=== PATIENT | male | born 1955 | race Caucasian/White ===

== ENCOUNTER 2017-11-27 10:00 | Outpatient (RCR) | payer OTHER ==
--- NOTE | 2017-10-10 18:22 | PT INITIAL EVALUATION ---
Physician: Dr. Keyes Patient is being seen: Hieu De Leon (Tom) Therapist: Caren Garcia, PT, MPT Medical Diagnosis: L) great toe plantar surface, neuropathic ulcer Treatment Diagnosis: L) great toe plantar surface, neuropathic ulcer Date of Onset: March 2016 Date of Initial Evaluation: 05/16/16 Date of Re-evaluations: 08/22/16, 11/28/16, 03/13/17, 06/12/17, 10/08/17 Date patient was last seen: 10/08/17 Number of treatments: 66 Number of cancellations/No shows: 0 SUBJECTIVE: Pt attempted to manage care of healing wound indep and requested discharge from wound care on 09/09/17. Pt now returns noting that callous formed over the wound and following soaking his foot in epsom salt, it began to slough. Pt is concerned regarding the possibility of a more significant wound beneath. OBJECTIVE: Currently wound measures 0.2cm L x 0.8cm W x 0.2cm D following debridement of periwound callous with beveling down to healthy wound base. INTERVENTIONS: The patient has been seen for PT wound care since 05/16/16, this has included advanced wound care product selection and application as well as conservative sharps debridement. The patient was fit by Dr. Carranza for custom orthotic with off loading of the L) great toe in May 2016. Mando has been compliant with attending wound care appointments and completing home dressing changes. Pt has undergone antibiotic treatment for wound infection three separate times since start of care; 07/04/2016 (oral abx), 10/26/2015 (oral Keflex and Bactrim), and most recently on 02/19/2017 (IV followed by oral clindamycin). X-rays were taken on 10/26/16 and 02/19/17 and per reports there was no evidence of osteomyelitis at that time. Due to delayed healing with current orthotic and pt's high activity level, the patient began wearing offloading shoe with "peg-assist" offloading insert in October 2016 to minimize pressure during toe off. The patient has been moderately compliant with decreasing activity and use of offloading device since that time. PT recommended that patient use crutches with NWB status of L) LE in order to fully offload wound, however the patient indicates that he cannot be compliant with this due to lifestyle constraints. Negative Pressure Wound Therapy was also applied for a 3 week trial using SNAP disposable NPWT, no improvement was noted during this trial (01/25/17-02/15/17). The patient was referred to Dr. Dillon DPM for further recommendations for effective offloading as well as alternative interventions so as to facilitate wound healing and prevent further infection. Per pt report, Dr. Carranza recommended continued daily dressing changes with collagen application and use of orthotic for offloading. Dr. Carranza is available for consult as needed. Pt also indicated that Dr. Carranza's next suggestion was total contact casting if wound still does not improve. Wound was gradually improving in dimensions until 05/09, when the medial aspect eroded, creating a larger wound width again. Length of wound, however, continues to improve. Pt then continued with wound care clinic for weekly care until 09/09/17, at which time he requested to be discharged, noting that he felt he and his could manage the dressing changes in the home environment, as the wound was so nearly healed. At time of discharge, wound measured 0.1cm L x 0.5cm W x 0.2cm D. Short Term Goals 1. Pt to maintain a clean, dry and intact dressing with dressing changes as instructed at home between therapy visits 2. Wound bed to demo 100% granulation base with wound borders gradually migrating inward. 3. No signs or symptoms of infection to be noted, using clean technique for all dressing changes and debridement. 4. Pt to f/u with specialists as needed to prevent further injury related to neuropathy 5. Pt to demo understanding of preventative foot care and proper shoe selection. Patient Compliance: Pt compliant with daily wound dressing changes and maintains clean and dry dressings between visits. The patient has been moderately compliant with decreasing activity and use of offloading device. Wound Measurements: 05/16/16: 1.5cm L x 1.5cm W x 0.3cm D 08/12/16: 1.4 cm L x 1.1 cm W x0.2 cm D 11/28/16: 1.1 cm L x 0.9 cm W x0.2 cm D 03/13/17: 1 cm L x 0.9 cm W x 0.2 cm D Undermining of 0.2 cm from 11-2, increased depth of 0.3 at 11 o clock. 06/12/17: 0.7cm L x 1.7cm W x 0.2cm D 10/08/17: 0.2cm l x 0.8cm W x 0.2cm D MIGUEL ÁNGEL's: R) 1.03, L) 1.1 (measured 10/31/16) Reasons for continuing therapy: Pt will benefit from further skilled PT for conservative sharp debridement as well as advanced PT wound care product selection and application in order to facilitate wound healing without further complications and infection. Further ongoing instruction provided regarding more effective off-loading and pt is aware that Dr. Carranza recommends total contact casting if wound healing stalls again. Pt is declining this option currently. Pt will now be scheduled as a co-treat visit with [facility] for a consult regarding more appropriate shoes and insoles, or true off inlayer, such as a [place] or owl boot. Thank you for consult on this patient. If you have any questions, comments, or concerns about this report or plan, please contact me at . H. Nelly Garcia, PT, MPT MTDD
[~2017-11-27 10:00] MED LIST: AMI10 PO; CEPH500C24 PO; CLIN300C99 PO; HYDR-385 PO; HYDR2TAB74 PO; KET10 PO; LOR5 PO; LOR5/325 PO; OMEP-218 PO; ONDA4TAB PO; OXYC-865 PO; SULF-198 PO; TRAM100T8 PO; VITA400T7 PO; [UNRECOGNIZED DRUG - REMARK]
== END 2017-11-27 18:00 | disposition home or self-care (01) ==
LOC: PT 10:00
PROVIDERS: ATTEND Family Medicine
DX: L97.521 Non-pressure chronic ulcer of other part of left foot limited to breakdown of skin (principal)
CPT/HCPCS: 97161

== ENCOUNTER 2018-02-07 16:49 | Emergency (ER) | payer OTHER ==
[2018-02-07] MEDS ORDERED: GABA-506 PO (16:57)
--- NOTE | 2018-02-07 16:59 | ER Report ---
History and Physical Time Seen By MD: 16:59 HPI/ROS CHIEF COMPLAINT: Wound to left great toe HISTORY OF PRESENT ILLNESS: 62-year-old male patient presents to the emergency room with complaint of a wound to the left great toe. Patient states that he has had this wound for the past 3 years. States that he's noticed some redness over the last couple of days. States that he has had a fever. He was concerned about possible infection into the bone of that toe. He did come in for further evaluation. He does see Diana for wound care. He saw her earlier this week. He did discuss the redness and swelling with her and she encouraged him to come in for further evaluation. Patient has had a fever today, he has taken Tylenol at 7 :00 this morning, he is not taking anything this evening. He denies any nausea, vomiting or diarrhea. REVIEW OF SYSTEMS: Respiratory: No cough, no dyspnea. Cardiovascular: No chest pain, no palpitations. Gastrointestinal: No vomiting, no abdominal pain. Musculoskeletal: No back pain. Allergies: Coded Allergies: duloxetine HCl (Verified Allergy, Severe, SORES UNDER ARMS, 02/07/18) pregabalin (Verified Allergy, Severe, SORES UNDER ARMS, 02/07/18) gemfibrozil (Verified Allergy, Unknown, 02/07/18) EHR CONVERSION Home Meds Active Scripts Cephalexin 500 Mg Tab (KEFLEX 500 MG TAB) 500 Mg Tablet, 500 MG PO Q6H, #28 TAB Prov:CARLOS ABDUL 02/07/18 Reported Medications Gabapentin (GABAPENTIN) 800 Mg Tablet, 800 MG PO BID 02/07/18 Tramadol Hcl (TRAMADOL HCL) 100 Mg Tab.er.24h, 100 MG PO BID, #2 TAB 10/26/16 Omeprazole Magnesium (PRILOSEC OTC) 20 Mg Tablet.dr, 2 TAB PO QDAY, TAB 10/26/16 Discontinued Reported Medications Vitamin E Mixed (VITAMIN E) 400 Unit Tablet, 400 UNIT PO QDAY 10/26/16 Discontinued Scripts Hydrocodone Bit/Acetaminophen (HYDROCODON-ACETAMINOPHEN 5-325) 1 Each Tablet, 1- 2 EACH PO Q6H for PAIN, #30 TAB Prov:VIANNEY COLLINS PA-C 05/06/17 Oxycodone Hcl/Acetaminophen (PERCOCET 5-325 MG TABLET) 1 Each Tablet, 1-2 EACH PO Q4H Y for PAIN, #15 TAB 0 Refills Prov:JOHNATHON ERVIN MD 05/02/17 Clindamycin Hcl (CLINDAMYCIN HCL) 300 Mg Capsule, 300 MG PO Q6H, #40 CAPSULE 0 Refills Prov:GUCCI QUINTERO MD 02/19/17 Sulfamethoxazole/Trimet 800-160 Mg Tab (BACTRIM DS TABLET) 1 Each Tablet, 1 TAB PO BID for infection, #20 Prov:VANESSA RIOS Jerry DO 10/26/16 Cephalexin Monohydrate (CEPHALEXIN) 500 Mg Cap, 500 MG PO TID for infection, # 30 CAP TAKE 1 CAPSULE BY MOUTH EVERY SIX HOURS Prov:VANESSA RIOS 10/26/16 Past Medical/Surgical History Patient has a past medical history of neuropathy to bilateral feet, sleep apnea , hepatitis, cholecystitis, hiatal hernia, arthritis, left hand fracture. Patient has a surgical history of tonsillectomy, back surgery, cholecystectomy. Patient has a family medical history of [place], diabetes. Reviewed Nurses Notes: Yes Hx Smoking: Yes Hx Substance Use Disorder: No Hx Alcohol Use: No Constitutional Vital Sign - Last 24 Hours 02/07/18 02/07/18 02/07/18 02/07/18 16:50 16:56 16:59 18:31 Temp 100.3 Pulse 67 Resp 16 B/P (MAP) 165/85 165/85 (111) 157/91 (113) 141/74 (96) Pulse Ox 92 O2 Delivery Room Air 02/07/18 18:34 Temp 99.9 Intake and Output 02/07/18 02/07/18 02/08/18 15:00 23:00 07:00 Intake Total 100 ml Balance 100 ml Physical Exam General Appearance: The patient is alert, has no immediate need for airway protection and no current signs of toxicity. Respiratory: Chest is non tender, lungs are clear to auscultation. Cardiac: regular rate and rhythm Gastrointestinal: Abdomen is soft and non tender, no masses, bowel sounds normal. Musculoskeletal: Neck: Neck is supple and non tender. Extremities have full range of motion and are non tender. Skin: No rashes or lesions. Patient has wound to the plantar aspect of the left great toe, the foot itself is erythematous, warm. There is no swelling. DIFFERENTIAL DIAGNOSIS: After history and physical exam differential diagnosis was considered for cellulitis, osteomyelitis Medical Decision Making Data Points Result Diagram: 02/07/18 1707 02/07/18 1707 Laboratory Hematology Test 02/07/18 17:07 Red Blood Count 5.61 M/uL (4.00-5.60) Mean Corpuscular Volume 87.0 fL (80.0-96.0) Mean Corpuscular Hemoglobin 30.5 pg (26.0-33.0) Mean Corpuscular Hemoglobin Concent 35.0 g/dL (32.0-36.0) Red Cell Distribution Width 14.2 % (11.5-14.5) Mean Platelet Volume 8.2 fL (7.2-11.1) Neutrophils (%) (Auto) 77.8 % (39.4-72.5) Lymphocytes (%) (Auto) 11.7 % (17.6-49.6) Monocytes (%) (Auto) 8.4 % (4.1-12.4) Eosinophils (%) (Auto) 1.5 % (0.4-6.7) Basophils (%) (Auto) 0.6 % (0.3-1.4) Nucleated RBC Relative Count (auto) 0.1 /100WBC Neutrophils # (Auto) 7.8 K/uL (2.0-7.4) Lymphocytes # (Auto) 1.2 K/uL (1.3-3.6) Monocytes # (Auto) 0.8 K/uL (0.3-1.0) Eosinophils # (Auto) 0.1 K/uL (0.0-0.5) Basophils # (Auto) 0.1 K/uL (0.0-0.1) Nucleated RBC Absolute Count (auto) 0.01 K/uL Sodium Level 137 mmol/L (137-145) Potassium Level 3.7 mmol/L (3.5-5.0) Chloride Level 103 mmol/L (98-107) Carbon Dioxide Level 23 mmol/L (22-30) Blood Urea Nitrogen 13 mg/dl (9-21) Creatinine 0.80 mg/dl (0.66-1.25) Glomerular Filtration Rate Calc > 60.0 Random Glucose 119 mg/dl (75-110) Calcium Level 9.4 mg/dl (8.4-10.2) Total Bilirubin 1.0 mg/dl (0.2-1.3) Aspartate Amino Transf (AST/SGOT) 26 U/L (0-35) Alanine Aminotransferase (ALT/SGPT) 26 U/L (0-56) Alkaline Phosphatase 95 U/L (0-126) C-Reactive Protein 7.6 mg/dl (<1.0) Total Protein 7.7 gm/dl (6.3-8.2) Albumin 4.2 g/dl (3.5-5.0) Chemistry Test 02/07/18 17:07 White Blood Count 10.0 k/uL (4.5-11.0) Red Blood Count 5.61 M/uL (4.00-5.60) Hemoglobin 17.1 g/dL (14.0-18.0) Hematocrit 48.8 % (42.0-52.0) Mean Corpuscular Volume 87.0 fL (80.0-96.0) Mean Corpuscular Hemoglobin 30.5 pg (26.0-33.0) Mean Corpuscular Hemoglobin Concent 35.0 g/dL (32.0-36.0) Red Cell Distribution Width 14.2 % (11.5-14.5) Platelet Count 126 K/uL (150-450) Mean Platelet Volume 8.2 fL (7.2-11.1) Neutrophils (%) (Auto) 77.8 % (39.4-72.5) Lymphocytes (%) (Auto) 11.7 % (17.6-49.6) Monocytes (%) (Auto) 8.4 % (4.1-12.4) Eosinophils (%) (Auto) 1.5 % (0.4-6.7) Basophils (%) (Auto) 0.6 % (0.3-1.4) Nucleated RBC Relative Count (auto) 0.1 /100WBC Neutrophils # (Auto) 7.8 K/uL (2.0-7.4) Lymphocytes # (Auto) 1.2 K/uL (1.3-3.6) Monocytes # (Auto) 0.8 K/uL (0.3-1.0) Eosinophils # (Auto) 0.1 K/uL (0.0-0.5) Basophils # (Auto) 0.1 K/uL (0.0-0.1) Nucleated RBC Absolute Count (auto) 0.01 K/uL Glomerular Filtration Rate Calc > 60.0 Calcium Level 9.4 mg/dl (8.4-10.2) Total Bilirubin 1.0 mg/dl (0.2-1.3) Aspartate Amino Transf (AST/SGOT) 26 U/L (0-35) Alanine Aminotransferase (ALT/SGPT) 26 U/L (0-56) Alkaline Phosphatase 95 U/L (0-126) C-Reactive Protein 7.6 mg/dl (<1.0) Total Protein 7.7 gm/dl (6.3-8.2) Albumin 4.2 g/dl (3.5-5.0) EKG/Imaging Imaging FOOT 3 VIEW LEFT Provided history: wound to left great toe Additional pertinent history: none Three views obtained COMPARISON STUDIES: 02/19/17 FINDINGS: Acute osseous and soft tissue findings: There is moderate soft tissue swelling on the plantar surface of the great toe with a shallow surface ulceration at the level of the IP joint. No soft tissue gas. No underlying lytic lesion or gas in the joint space. There is mild dorsal swelling over the MTP joints seen only on the lateral view without obvious ulceration without bony normality underlying. Chronic osseous and soft tissue findings: Moderate pes planus deformity, almost converting to a rocker-bottom foot. Moderate-sized well-defined Achilles spur. Mild degenerative change of the first MTP joint and moderate degenerative change first IP joint. Lesions: None significant IMPRESSION: 1. Soft tissue changes per above without radiographic evidence of osteomyelitis. 2. Progressive pes planus deformity. Achilles spur. Other degenerative changes as noted. Report Dictated By: Ralph Santoro MD at 02/07/2018 5:53 PM Report E-Signed By: Ralph Santoro MD at 02/07/2018 5:58 PM ED Course/Re-evaluation ED Course Patient was admitted to an exam room, history and physical were obtained. Differential diagnoses were considered. A CBC, CMP, CRP, x-ray of the left foot was done. CBC had a white count of 10,000 with a slight left shift, 77% neutrophils. CMP was unremarkable. CRP was elevated at 7.6. X-ray showed no acute osteomyelitis. I discussed the case with Dr. Guerrier. Patient did receive a gram of Rocephin and my plan was to discharge him with oral Keflex [address] mg [address] Alberto did verbalize agreement with plan, his office will call and make appointment for follow-up with the patient on Saturday. I also called and discussed the results with Diana Garcia, physical therapist, who verbalized understanding and agreement with plan as well. I discussed this with the patient and we'll go ahead and discharge patient home at this time. Patient is return if condition worsens. Decision to Disposition Date: February 07, 2018 Decision to Disposition Time: 18:44 Depart Departure Latest Vital Signs Vital Signs Date Time Temp Pulse Resp B/P (MAP) Pulse Ox O2 Delivery O2 Flow Rate FiO2 02/07/18 18:34 99.9 02/07/18 18:31 141/74 (96) 02/07/18 16:50 67 16 92 Room Air Impression: Primary Impression: Cellulitis of left foot Additional Impression: Foot ulcer, left Condition: Condition Unchanged Disposition: HOME OR SELF-CARE Referrals: JOSE GUERRIER MD New Scripts Cephalexin 500 Mg Tab (KEFLEX 500 MG TAB) 500 Mg Tablet 500 MG PO Q6H, #28 TAB Prov: CARLOS ABDUL 02/07/18 Patient Instructions: Cellulitis (ED) Additional Instructions: Monitor the foot for worsening redness, heat or pain. The redness may worsens for the next couple of days and then will improve. Limit activity by pain. Follow up with Dr. Guerrier next week, his office will call on Saturday. Take Tylenol or Ibuprofen as needed for fevers. Follow up with Diana after you have seen Dr. Guerrier. Return to the ER if condition worsens. 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
[2018-02-07] MEDS ORDERED: ACETAMINOPHEN 500 MG TAB PO ONE (17:25)
[2018-02-07] MEDS ORDERED: cefTRIAXone(*) 1 GM VIAL 1 GM in NS(*) 0.9% 100 ML ADDVANT BAG 100 ML IVPB ONE (17:25)
[2018-02-07 17:40] LABS: PLATELET COUNT, AUTOMATED 126 K/uL (150-450)
--- NOTE | 2018-02-07 18:02 | RADIOLOGY IMAGING REPORT ---
[place] [facility] [place] Hieu De Leon : 1955 MR: [id number] V: [id number] EXAM DATE: ORDERING PHYSICIAN: CARLOS ABDUL TECHNOLOGIST: Location: [facility] Patient: Hieu De Leon : 1955 Visit/Account:[id number] Date of Sevice: 02/07/2018 FOOT 3 VIEW LEFT Provided history: wound to left great toe Additional pertinent history: none Three views obtained COMPARISON STUDIES: 02/19/17 FINDINGS: Acute osseous and soft tissue findings: There is moderate soft tissue swelling on the plantar surfa ce of the great toe with a shallow surface ulceration at the level of the IP joint. No soft tissue ga s. No underlying lytic lesion or gas in the joint space. There is mild dorsal swelling over the MTP joints seen only on the lateral view without obvious ulcer ation without bony normality underlying. Chronic osseous and soft tissue findings: Moderate pes planus deformity, almost converting to a rock er-bottom foot. Moderate-sized well-defined Achilles spur. Mild degenerative change of the first MTP joint and moderate degenerative change first IP joint. Lesions: None significant IMPRESSION: 1. Soft tissue changes per above without radiographic evidence of osteomyelitis. 2. Progressive pes planus deformity. Achilles spur. Other degenerative changes as noted. Report Dictated By: Ralph Santoro MD at 02/07/2018 5:53 PM Report E-Signed By: Ralph Santoro MD at 02/07/2018 5:58 PM WSN:[id number]
[2018-02-07] MEDS ORDERED: CEPH500T7 PO (18:20)
[2018-02-07 18:44] VITALS: BP 122/68
[2018-02-10] MEDS ORDERED: NAPR220C12 PO (16:37)
[2018-02-10] MEDS ORDERED: CEPH500T7 PO (17:29)
== END 2018-02-07 18:50 | disposition home or self-care (01) ==
LOC: ER 17:03
DX: L03.116 Cellulitis of left lower limb (principal); L97.522 Non-pressure chronic ulcer of other part of left foot with fat layer exposed
CPT/HCPCS: 36415; 73630; 85025; 86140; 87040; 87070; 87073; 87077; 87186; 96365; 99284; J0696; J7050; 82040; 82247; 82310; 82374; 82435; 82565; 82947; 84075; 84132; 84155; 84295; 84450; 84460; 84520

== ENCOUNTER → 2018-02-19 | Outpatient (CLI) | payer OTHER ==
[~2018-02-19] MED LIST changes: +CEPH500T7 PO; +GABA-506 PO; +GADOBENATE 529MG/1ML 15ML VIAL IVP ONE; +NAPR220C12 PO
--- NOTE | 2018-02-19 09:49 | RADIOLOGY IMAGING REPORT ---
FACILITY: [facility] PATIENT NAME: Hieu De Leon : 1955 MR: [id number] V: [id number] EXAM DATE: ORDERING PHYSICIAN: JOSE GUERRIER TECHNOLOGIST: [place] [facility] [place] Patient: Hieu De Leon : 1955 Visit/Account:[id number] Date of Sevice: 02/19/2018 MRI left foot with and without contrast Indication: Great toe ulcer. Evaluate for osteomyelitis. Comparison: Plain film examination 02/07/2018 is reviewed. Technique: Sagittal and coronal STIR and T1-weighted fat saturated postcontrast, axial T1 weighted fa t saturated pre-and postcontrast, T1-weighted, and T2-weighted fat saturated images were obtained thr ough the left foot. A total of 15 mL IV MultiHance contrast was administered. Findings: There is a soft tissue ulceration identified along the plantar margin of the great toe immediately be low the interphalangeal joint. There is skin thickening surrounding the ulcer involving the entire pl iva surface of the great toe centered around the interphalangeal joint space. There is no underlyin g marrow edema. There is no MR evidence to suggest osteomyelitis. No fluid collection. There is edema within the subcutaneous tissues. There is enhancement of the skin following contrast administration consistent with cellulitis. There are changes of osteoarthritis at the interphalangeal joint. Along the plantar surface of the sandip int space, there is a well-corticated ossification representing either a sesamoid, a joint body or an old fracture fragment in this location. No marrow edema or enhancement is present within the small f ragment. There is no evidence for septic arthropathy. The underlying flexor hallucis longus tendon is intact. There is no evidence of tendon thickening or intrasubstance tendon signal or enhancement. There is mild peritendinitis involving the tendon sheath . This may be related to the adjacent edema and cellulitic changes related to the ulcer. No fluid is seen within the tendon sheath. There are mild changes of osteoarthritis present at the first metatarsophalangeal joint and there are degenerative changes between the first metatarsal head and the sesamoids. The remaining metatarsophalangeal joints and the remaining interphalangeal joints of the forefoot jian ear normal. There is underlying atrophy of the intrinsic musculature of the foot likely due to chronic denervatio n changes. IMPRESSION: 1. Soft tissue ulcer with associated skin thickening/cellulitis and soft tissue edema along the plant ar surface of the left great toe. No evidence of abscess, osteomyelitis or septic arthropathy. 2. Mild, nonspecific peritendinitis about the flexor hallucis longus tendon sheath as it courses beyo nd the ulcer and soft tissue edema. No evidence of tendon thickening or tendon tear. 3. 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 Report Dictated By: Julius Chapa at 02/19/2018 9:32 AM Report E-Signed By: Julius Chapa at 02/19/2018 9:45 AM WSN:[id number]
== END ==
LOC: MRI 00:55
PROVIDERS: ATTEND Surgery
DX: L97.529 Non-pressure chronic ulcer of other part of left foot with unspecified severity (principal); M77.8 Other enthesopathies, not elsewhere classified; M19.072 Primary osteoarthritis, left ankle and foot
CPT/HCPCS: 73720; A9577

== ENCOUNTER 2018-04-28 10:00 | Outpatient (RCR) | payer OTHER ==
--- NOTE | 2018-02-18 14:39 | PT INITIAL EVALUATION ---
MEDICAL DIAGNOSIS: neuropathic ulcer at L) great toe; plantar surface of distal phalanx near IP joint. TREATMENT DIAGNOSIS: same DATE OF ONSET: chronic (>1 year) SUBJECTIVE: Pt arrives with wound covered in large bandaid at L) great toe; plantar surface of distal phalanx near IP joint. Odor noted upon removal of dressing. Tiny opening but with larger cavity beneath demonstrated by undermining. REHAB PROBLEM LIST: Non-healing wound at L) great toe with various modalities used for off loading and treatment. 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 Following debridement wound reveals itself to be 0.7cm l x 1cm W x 0.4cm D. ASSESSMENT: This wound is ongoing from previous out pt wound care management. Pt has been attempting to care for this in the home environment, however, due to increased odor and still non-healing wound, pt requested another wound eval prescription from his PCP, Dr. Keyes. Upon removal of dressing, there is a distinct odor. Wound opening is in fact initially very small, however, probing reveals an extensive area of undermining laterally and a void beneath in general. Following debridement wound reveals itself to be 0.7cm l x 1cm W x 0.4cm D. Short Term Goals 1. Definitive testing to understand cause behind non-healing wound. Pt is agreeable to follow up with specialist for further diagnosis. 2. Pt to maintain a clean, dry and intact dressing between visits with dressing changes as needed in the home environment. 3. Pt to off load wound site as much as able and verbalize understanding that this is likely a contributing factor to delayed healing. Patient's Goals Wound to heal without further complication and definitive wound care plan to be set with specialist regarding potential of bony involvement, foreign body or need for more aggressive off loading compliance. PLAN: Patient to be seen for selective debridement of non-viable tissue to encourage further closure at base of wound and selection of advanced wound care products to manage drainage and decrease chance of infection properly. 1x/Week for up to 3 months. Thank you for this referral. If you have any questions, comments, or concerns about this report or plan, please contact me at . H. Nelly Garcia, PT, MPT MTDD
[~2018-04-28 10:00] MED LIST changes: -GADOBENATE 529MG/1ML 15ML VIAL IVP ONE
== END 2018-05-04 ==
LOC: PT 10:00
PROVIDERS: ATTEND Family Medicine
DX: L97.521 Non-pressure chronic ulcer of other part of left foot limited to breakdown of skin (principal)
CPT/HCPCS: 97161

== ENCOUNTER 2018-05-07 10:20 | Emergency (ER) | payer OTHER ==
--- NOTE | 2018-05-07 10:55 | ER Report ---
History and Physical Time Seen By MD: 10:25 Hx. of Stated Complaint: PATIENT HAS A WOUND ON HIS SECOND TOE ON RIGHT FOOT. HE REPORTS THAT HE HAS NEUROPATHY AND HAS HAD PREVIOUS INJURIES TO TOES HPI/ROS CHIEF COMPLAINT: Toe infection HISTORY OF PRESENT ILLNESS: 63-year-old male comes emergency Department history of peripheral neuropathy and frequent infections and/or wounds to his feet he currently on his left great toe has wound to his service great toe which is currently being tracked and monitored by both general surgery and wound care noticed on his right foot his 2nd toe he clipped his toenails too short and now he notices a obvious infection to his toe could not get in to see his primary care wound care appointment is not for 2 days he came to the ER patient has no fever chills or sweats nausea vomiting and cannot feel pain of the toe due to his neuropathy REVIEW OF SYSTEMS: Respiratory: No cough, no dyspnea. Cardiovascular: No chest pain, no palpitations. Gastrointestinal: No vomiting, no abdominal pain. Musculoskeletal: No back pain. Remainder of the 14 system rev: Yes Allergies: Coded Allergies: duloxetine HCl (Verified Allergy, Severe, SORES UNDER ARMS, 02/07/18) pregabalin (Verified Allergy, Severe, SORES UNDER ARMS, 02/07/18) gemfibrozil (Verified Allergy, Unknown, 02/07/18) EHR CONVERSION Home Meds Reported Medications Naproxen Sodium (ALEVE) 220 Mg Capsule, 220 MG PO TID, CAPSULE 02/10/18 Gabapentin (GABAPENTIN) 800 Mg Tablet, 800 MG PO BID 02/07/18 Tramadol Hcl (TRAMADOL HCL) 100 Mg Tab.er.24h, 100 MG PO BID, #2 TAB 10/26/16 Omeprazole Magnesium (PRILOSEC OTC) 20 Mg Tablet.dr, 2 TAB PO QDAY, TAB 10/26/16 Discontinued Scripts Cephalexin 500 Mg Tab (KEFLEX 500 MG TAB) 500 Mg Tablet, 500 MG PO Q6H, #28 TAB Prov:JOSE GUERRIER MD 02/10/18 Reviewed Nurses Notes: Yes Old Medical Records Reviewed: Yes Hx Smoking: Yes Smoking Status: Current: Every Day Smoker Hx Substance Use Disorder: No Hx Alcohol Use: No Constitutional Vital Sign - Last 24 Hours 05/07/18 10:24 Temp 97.8 Pulse 61 Resp 24 B/P (MAP) 160/88 Pulse Ox 92 O2 Delivery Room Air Physical Exam General appearance: Alert no distress. Respiratory: Chest is non tender, lungs are clear to auscultation. Cardiac: Regular rate and rhythm [ ] Right foot examination shows decreased skin turgor on most of the Viji aspect of the right foot his 2nd toe is a well appears to be taken degradation of breakdown of the skin consistent with an early cellulitis versus early abscess formation patient has decreased sensation consistent with his peripheral neuropathy vascularly intact DIFFERENTIAL DIAGNOSIS: After history and physical exam differential diagnosis was considered for peripheral neuropathy with wound Medical Decision Making ED Course/Re-evaluation ED Course ED clinical course medical decision making a 63-year-old male history of peripheral neuropathy comes in with an obvious wound to his toe on his right foot 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 dressed has follow-up appointment in 72 hours we'll start antibiotics and follow-up accordingly Decision to Disposition Date: May 07, 2018 Decision to Disposition Time: 11:13 Depart Departure Latest Vital Signs Vital Signs Date Time Temp Pulse Resp B/P (MAP) Pulse Ox O2 Delivery O2 Flow Rate FiO2 05/07/18 10:24 97.8 61 24 160/88 92 Room Air Impression: Primary Impression: Infected abrasion of toe Condition: Improved Disposition: HOME OR SELF-CARE Referrals: JUDY HUI DO 5 Days New Scripts Sulfamethoxazole/Trimet 800-160 Mg Tab (BACTRIM DS TABLET) 1 Each Tablet 1 TAB PO Q12H, #14 MG 0 Refills TAKE ONE TABLET BY MOUTH EVERY TWELVE HOURS Prov: REYES MADRIGAL MD 05/07/18 Patient Instructions: Cellulitis (DC) REYES MADRIGAL MD May 07, 2018 10:55
[2018-05-07] MEDS ORDERED: SULF-198 PO (11:16)
[2018-05-07 11:30] VITALS: BP 130/85
== END 2018-05-07 11:42 | disposition home or self-care (01) ==
LOC: ER 10:29
DX: L08.89 Other specified local infections of the skin and subcutaneous tissue (principal)
CPT/HCPCS: 97161; 99281

== ENCOUNTER → 2018-05-28 | Outpatient (CLI) | payer OTHER ==
--- NOTE | 2018-05-28 09:58 | RADIOLOGY IMAGING REPORT ---
FACILITY: [facility] PATIENT NAME: Hieu De Leon : 1955 MR: [id number] V: [id number] EXAM DATE: ORDERING PHYSICIAN: AUBREY NAGEL TECHNOLOGIST: Location: [facility] Patient: Hieu De Leon : 1955 Visit/Account:[id number] Date of Sevice: 05/28/2018 Exam type: FOOT 2 VIEW RIGHT History: Pain in second toe and foot x2 weeks Comparison: None. Findings: There is a deformity of the proximal phalanx of the right great toe suggestive of an old fracture def ormity. There are moderate degenerative changes at the IP joint of the right great toe and mild dege nerative changes of the right first metatarsal phalangeal joint. There is also mild angulation at th e IP joint of the right great toe with the apex of the angle noted medially. No soft tissue gas is p resent. There is a tiny calcaneal spur and enthesopathic changes at the insertion the Achilles tendo n. There suggestion of soft tissue swelling along the distal aspect of the right second toe and possible subtle erosion of the distal tuft IMPRESSION: 1. Deformity of the proximal fillings the right great toe is suggestive of an old fracture deformity with degenerative changes at the IP joint as described above. There suggestion of soft tissue swelling along the distal aspect of the right second toe and possible subtle erosion of the distal tuft. Clinical correlation needed Report Dictated By: Elin Morales MD at 05/28/2018 9:50 AM Report E-Signed By: Elin Morales MD at 05/28/2018 9:55 AM WSN:[email or web address]
--- NOTE | 2018-05-28 11:10 | RADIOLOGY IMAGING REPORT ---
FACILITY: [facility] PATIENT NAME: Hieu De Leon : 1955 MR: [id number] V: [id number] EXAM DATE: ORDERING PHYSICIAN: AUBREY NAGEL TECHNOLOGIST: Location: [facility] Patient: Hieu De Leon : 1955 Visit/Account:[id number] Date of Sevice: 05/28/2018 Exam type: ANKLE BRACHIAL INDICES History: Foot ulcers Comparison: None. Findings: The segmental pressure in the right brachial artery is 138 mmHg. The segmental pressure in the right dorsalis pedis artery is 162 mmHg. Segmental pressure in the right posterior tibial artery is 163 m mHg. The segmental pressure in the right great toe is 76 mmHg. The MIGUEL ÁNGEL on the right is 1.16 and the TBI on the right is 0.54. The segmental pressure the left brachial artery is 140 mmHg. The segmental pressure in the left dors shelly pedis artery is 173 mmHg. Signal pressure in the left posterior tibial artery is 145 mmHg. The segmental pressure in the left great toe is 117 mmHg. The MIGUEL ÁNGEL on the left is 1.24 and the TBI on the left is 0.84 There is mild dampening of the PVR waveform at the right ankle IMPRESSION: 1. MIGUEL ÁNGEL on the right is 1.16 and on the left is 1.24 TBI in the right is 0.54 and on the left 0.84 Report Dictated By: Elin Morales MD at 05/28/2018 11:00 AM Report E-Signed By: Elin Morales MD at 05/28/2018 11:06 AM WSN:[email or web address]
== END ==
LOC: RAD 08:48
PROVIDERS: ATTEND Family Medicine
DX: L89.899 Pressure ulcer of other site, unspecified stage (principal)

== ENCOUNTER → 2018-06-06 | Outpatient (CLI) | payer OTHER ==
[~2018-06-06] MED LIST changes: +GADOBENATE 529MG/1ML 5 ML VIAL ONE
--- NOTE | 2018-06-12 10:32 | RADIOLOGY IMAGING REPORT ---
[place] [facility] [place] NAME: Hieu De Leon : 1955 MR: [id number] V: [id number] EXAM DATE: ORDERING PHYSICIAN: AUBREY NAGEL TECHNOLOGIST: Location: [facility] Patient: Hieu De Leon : 1955 Visit/Account:[id number] Date of Sevice: 06/06/2018 MRI right foot with and without contrast Indication: Right second toe ulcer Comparison: Right foot radiograph 05/28/2018 Technique: Sagittal and coronal STIR and T1-weighted fat saturated postcontrast, axial T1 weighted fa t saturated pre-and postcontrast, T1-weighted, and T2-weighted fat saturated images were obtained thr ough the right foot. A total of 15 mL IV MultiHance contrast was administered. Findings: Osseous structures/bone marrow: The examination is tailored for the assessment of the second toe, and includes the majority of the di stal toes, with incomplete imaging of the tarsometatarsal joints due to the selected imaging field of view. There is confluent T1 hypointensity in the second toe distal phalanx, compatible with osteomyelitis. This demonstrates abnormal enhancement after contrast agent administration. Patchy marrow change an d enhancement in the second middle phalanx may be reactive or early osteomyelitis. Remote healed fracture deformity in the fifth first proximal phalanx is again demonstrated. Backgrou nd mild first metatarsophalangeal (MTP) osteoarthrosis is present. Bipartite lateral sesamoid of the first MTP joint is nonspecific, but likely normal anatomic variant. Additional degenerative changes present in the first interphalangeal joint, likely posttraumatic. No acute posttraumatic or stress fracture is seen. No malalignment is present on these nonweightbearing images. The Lisfranc joint is congruent. Ligaments and tendons: The plantar plates of the metatarsophalangeal joints are intact, where visualized. Lisfranc ligament is intact. Distal flexor and extensor tendons are normal where visualized. Mild diffuse muscle atrophy and edema is present, suggestive of underlying neuropathy. Distal plantar soft tissues is intact. Adjacent soft tissues: There is diffuse subcutaneous edema about the second toe. Dorsal and distal skin surface irregularit y is compatible with provided history of soft tissue ulcer. There is enhancement of the subcutaneous edema about the second toe, compatible with cellulitis. No rim-enhancing fluid collection or absces s is seen. No definite soft tissue mass or neuroma is demonstrated. No significant intermetatarsal bursitis is present. IMPRESSION: 1. Osteomyelitis of the second toe distal phalanx. Patchy marrow change in the second middle phalan x is nonspecific, and may be reactive or early infection. 2. Significant subcutaneous edema about the second toe with enhancement, compatible with cellulitis. No evidence for abscess. 3. Skin surface irregularity at the second toe distally, compatible with provided history of ulcerat ion. 4. Diffuse muscle atrophy and edema suggests underlying neuropathy. 5. Remote healed fracture deformity in the first proximal phalanx. Background degenerative change i n the first metatarsophalangeal and interphalangeal joints. Report Dictated By: Adelia Do MD at 06/06/2018 1:09 PM Report E-Signed By: Adelia Do MD at 06/06/2018 1:24 PM WSN:[email or web address]
== END ==
LOC: MRI 06-02 00:10
PROVIDERS: ATTEND Family Medicine
DX: M86.9 Osteomyelitis, unspecified (principal); L03.031 Cellulitis of right toe; M89.8X7 Other specified disorders of bone, ankle and foot
CPT/HCPCS: 36415; 73720; 82565; A9577

== ENCOUNTER → 2018-06-19 | Outpatient (CLI) | payer OTHER ==
[~2018-06-19] MED LIST changes: -GADOBENATE 529MG/1ML 5 ML VIAL ONE
--- NOTE | 2018-06-19 11:36 | EKG ---
[place] [facility] [place]IENT NAME: CHEYENNE LEMUS : [id number] MR: [id number] V: [id number] EXAM DATE: ORDERING PHYSICIAN: JOSE TRONCOSO TECHNOLOGIST: ASAD Bah Reason : PTROP-TOE Blood Pressure : / mmHG Vent. Rate : 054 BPM Atrial Rate : 054 BPM P-R Int : 210 ms QRS Dur : 110 ms QT Int : 454 ms P-R-T Axes : 058 -14 051 degrees QTc Int : 430 ms Sinus bradycardia with 1st degree AV block Otherwise normal ECG No previous ECGs available Confirmed by Manny Carpio ([id number]) on 06/19/2018 1:05:01 PM Referred By: Confirmed By:Manny Floyd
[2018-06-19 11:38] LABS: PLATELET COUNT, AUTOMATED 229 K/uL (150-450)
[2018-06-19 11:42] LABS: INR 1.11
== END ==
LOC: LAB 11:13
PROVIDERS: ATTEND Anesthesiology
DX: Z01.812 Encounter for preprocedural laboratory examination (principal); Z01.810 Encounter for preprocedural cardiovascular examination; M86.171 Other acute osteomyelitis, right ankle and foot
CPT/HCPCS: 36415; 82040; 82247; 82310; 82374; 82435; 82565; 82947; 84075; 84132; 84155; 84295; 84450; 84460; 84520; 85025; 85610; 93005

== ENCOUNTER 2018-07-28 10:30 | Outpatient (RCR) | payer OTHER ==
--- NOTE | 2018-05-05 15:38 | PT PLAN OF CARE ---
Physician: Dr. Keyes Patient is being seen: Hieu De Leon Therapist: Caren Garcia, PT, MPT/ Pamela Mckeon, PT, DPT Medical Diagnosis: Neuropathic Ulcer Treatment Diagnosis: Neuropathic Ulcer Date of Onset: 2015 Date of Initial Evaluation: 05/05/18 Date patient was last seen: Number of treatments: 13 Number of cancellations/No shows: 0 INTERVENTIONS: Pt has been seen on and off for PT wound care since 2015, with most recent wound care evaluation completed on January,. The patient has been seen for weekly dressing changes and conservative, selective debridement with consistent pt education regarding the importance of aggressive offloading to facilitate wound healing. MRI was completed late January 2018 with no evidence of osteomyelitis. The patient has been resistant to PT recommendations for more aggressive offloading of the area (i.e. total contact cast, NWB with crutches etc.) GOALS: 1. Definitive testing to understand cause behind non-healing wound. Pt is agreeable to follow up with specialist for further diagnosis. (met) 2. Pt to maintain a clean, dry and intact dressing between visits with dressing changes as needed in the home environment. (ongoing) 3. Pt to off load wound site as much as able and verbalize understanding that this is likely a contributing factor to delayed healing. (not met, ongoing) PATIENT'S GOAL: Wound healing Status of Patient's Goals: Not met Patient Compliance: Poor Prognosis: Poor- d/t pt poor patient compliance Reasons for continuing therapy: Pt will benefit from further skilled PT wound care to include conservative, sharps debridement as well as advanced wound care product selection and application to facilitate wound healing. PT continues to recommend more aggressive offloading of the area, such as total contact casting which would require referral to a clinic that provides these services. The patient has been resistant to this recommendation up unto this point. Special Tests: Wound Measurements: 0.6 cm L x 0.7 cm W x 0.3 cm D, undermining from 2-5 of 0.2 cm D. Thank you for this referral. If you have any questions, comments, or concerns about this report or plan, please contact me at . Pamela Mckeon, PT, DPT MTDD
--- NOTE | 2018-07-31 14:26 | PT PLAN OF CARE ---
Physician: Dr. Keyes Patient is being seen: Hieu De Leon Therapist: Caren Garcia, PT, MPT, OMS Medical Diagnosis: Neuropathic Ulcer Treatment Diagnosis: Neuropathic Ulcer Date of Onset: 2015 Date of Initial Evaluation: 05/05/18 Date patient was last seen: 07/28/18 Number of treatments: see EMR Number of cancellations/No shows: 0 INTERVENTIONS: conservative, sharps debridement as well as advanced wound care product selection and application to facilitate wound healing. PT continues to recommend more aggressive offloading of the area, such as total contact casting which has been attempted with good results for 2 casts prior to pt requesting removal of cast for hunting. GOALS: 1. Definitive testing to understand cause behind non-healing wound. Pt is agreeable to follow up with specialist for further diagnosis. (met) 2. Pt to maintain a clean, dry and intact dressing between visits with dressing changes as needed in the home environment. (ongoing) 3. Pt to off load wound site as much as able and verbalize understanding that this is likely a contributing factor to delayed healing. (ongoing, attempted total contact casting x 2 casts with excellent results until request for removal of cast by pt.) PATIENT'S GOAL: wound healing without compromising mobility Status of Patient's Goals: poor Patient Compliance: poor Prognosis: Poor Reasons for continuing therapy: Pt discharged from out pt PT as he was admitted to hospital with cellulitis. Pt had experienced excellent results with brief application of total contact casting twice and wound was nearly closed, measuring 0.1cm L x 0.2cm W x 0.1cm D at most recent visit. Pt then requested that cast be removed to enable him to go hunting. With cast removed, pt states that he in fact did not go hunting, but did resume his regular household activities with ambulation to/from his shop on uneven surfaces. Pt arrived on 07/28/18 with significant redness to dorsum of L) foot, extending up lower leg and with L) great toe more edematous. Pt was transported to ED after call with triage team and was eventually admitted to [facility] for IV abx due to cellulitis. Pt to be re-evaluated by out pt PT for further wound care and encouragement to tolerate total contact casting until wound is fully resolved, upon d/c from hospital. Thank you for this referral. If you have any questions, comments, or concerns about this report or plan, please contact me at . H. Nelly Garcia, PT, MPT, OMS MTDD
== END 2018-07-28 18:00 | disposition home or self-care (01) ==
LOC: PT 10:30
PROVIDERS: ATTEND Family Medicine
DX: L97.521 Non-pressure chronic ulcer of other part of left foot limited to breakdown of skin (principal)

== ENCOUNTER 2018-07-28 11:35 | Inpatient (IN) | payer OTHER ==
[~2018-07-28] VITALS: Ht 195.6 cm; Wt 126.1 kg
[2018-07-28] MEDS ORDERED: NS(*) 0.9% 1000 ML BAG 1,000 ML IV ONE (11:41)
[2018-07-28] MEDS ORDERED: PIPERACILLIN/TAZO*3.375GM VIAL 3.375 GM in NS(*) 0.9% 100 ML ADDVANT BAG 100 ML IVPB ONE (11:45)
[2018-07-28] MEDS ORDERED: ACETAMINOPHEN 325 MG TAB ONE (12:05)
[2018-07-28] MEDS ORDERED: ACETAMINOPHEN 325 MG TAB PO ONE (12:05)
[2018-07-28 12:21] LABS: PLATELET COUNT, AUTOMATED 180 K/uL (150-450)
--- NOTE | 2018-07-28 12:24 | ER Report ---
History and Physical Time Seen By MD: 11:50 Hx. of Stated Complaint: PRESENTS FROM REHAB FOR SUDDEN ONSET OF ERYTHEMA AND WARMTH TO LEFT TOE AND FOOT. HPI/ROS CHIEF COMPLAINT: Redness to left lower extremity HISTORY OF PRESENT ILLNESS: Patient is a 63-year-old male who was sent over from wound clinic for evaluation of new onset redness to his right lower extremity that began sometime this morning. Patient is being followed by wound for nonhealing ulcer to the base of the left toe. Patient recently had irritation to the 2nd digit of the right foot by Dr. Willard. Patient apparently does not have a diagnosis of diabetes but does carry a diagnosis of peripheral vascular disease and neuropathy. Patient states last evening he was not feeling well but did not take his temperature. States that he felt tired this morning as well. He had a fever at that time. REVIEW OF SYSTEMS: Constitutional: No fever, no chills. Eyes: No discharge. ENT: No sore throat. Cardiovascular: No chest pain, no palpitations. Respiratory: No cough, no shortness of breath. Gastrointestinal: No abdominal pain, no vomiting. Genitourinary: No hematuria. Musculoskeletal: Nonhealing wound to the great toe of the left foot Skin: Erythema spreading from left foot dorsal aspect. Neurological: No headache. Allergies: Coded Allergies: duloxetine HCl (Verified Allergy, Severe, SORES UNDER ARMS, 07/28/18) pregabalin (Verified Allergy, Severe, SORES UNDER ARMS, 07/28/18) gemfibrozil (Verified Allergy, Unknown, 07/28/18) EHR CONVERSION Home Meds Reported Medications Naproxen Sodium (ALEVE) 220 Mg Capsule, 220 MG PO TID PRN for PAIN, CAPSULE 02/10/18 Gabapentin (GABAPENTIN) 800 Mg Tablet, 800 MG PO BID 02/07/18 Tramadol Hcl (TRAMADOL HCL) 100 Mg Tab.er.24h, 2 TAB PO BID 10/26/16 Omeprazole Magnesium (PRILOSEC OTC) 20 Mg Tablet.dr, 2 TAB PO QDAY, TAB 10/26/16 Discontinued Scripts Sulfamethoxazole/Trimet 800-160 Mg Tab (BACTRIM DS TABLET) 1 Each Tablet, 1 TAB PO Q12H, #14 MG 0 Refills TAKE ONE TABLET BY MOUTH EVERY TWELVE HOURS Prov:REYES MADRIGAL MD 05/07/18 Past Medical/Surgical History Peripheral vascular disease; dictation to right 2nd toe Hx Smoking: Yes Smoking Status: Current: Every Day Smoker Hx Substance Use Disorder: No Hx Alcohol Use: No Constitutional Vital Sign - Last 24 Hours 07/28/18 07/28/18 07/28/18 07/28/18 11:38 11:40 11:45 11:50 Temp 101.0 Pulse 77 79 Resp 18 B/P (MAP) 133/78 (96) 133/78 Pulse Ox 88 92 O2 Delivery Room Air Nasal Cannula O2 Flow Rate 2.0 2 07/28/18 07/28/18 07/28/18 07/28/18 12:09 12:14 12:29 12:44 Pulse 71 66 74 B/P (MAP) 132/95 (107) Pulse Ox 96 94 99 97 O2 Delivery Nasal Cannula Nasal Cannula Nasal Cannula Nasal Cannula O2 Flow Rate 2 2 2 2 Intake and Output 07/28/18 07/28/18 07/29/18 15:00 23:00 07:00 Intake Total 100 ml Balance 100 ml Physical Exam General Appearance: The patient is alert, has no immediate need for airway protection and no signs of toxicity. [ ] Eyes: Pupils equal and round no pallor or injection. ENT, Mouth: Mucous membranes are moist. Respiratory: There are no retractions, lungs are clear to auscultation. Cardiovascular: Regular rate and rhythm. [ ] Gastrointestinal: Abdomen is soft and non tender, no masses, bowel sounds normal. Neurological: Shows 15 Skin: Erythema and lymphangitis spreading from the dorsum of the left foot fpc up the anterior falcon of the left lower extremity Musculoskeletal: Neck is supple non tender. Extremities are nontender, nonswollen and have full range of motion. [ ] DIFFERENTIAL DIAGNOSIS: After history and physical exam differential diagnosis was considered for [ ] Medical Decision Making Data Points Result Diagram: 07/29/18 0520 07/29/18 0520 Laboratory Hematology Test 07/28/18 11:58 Erythrocyte Sedimentation Rate 27 mm/HOUR (0-20) Lactate 2.1 mmol/L (0.7-2.1) Chemistry Test 07/28/18 11:58 Erythrocyte Sedimentation Rate 27 mm/HOUR (0-20) Lactate 2.1 mmol/L (0.7-2.1) Microbiology Microbiology Date/Time Source Procedure Growth Status 07/28/18 12:09 Blood Peripheral Draw Blood Culture - Final Resulted 07/28/18 12:09 Blood Peripheral Draw Blood Culture - Preliminary Resulted 07/28/18 11:53 Blood Peripheral Draw Blood Culture - Final Resulted 07/28/18 11:53 Blood Peripheral Draw Blood Culture - Preliminary Resulted ED Course/Re-evaluation Clinical Indication for ER IV: IV Access ED Course Patient with apparent cellulitis to the left lower extremity. We'll check basic lab work Blood cultures lactate CRP and sedimentation rate we'll give IV anti biotics we'll consider for possible admission Decision to Disposition Date: Jul 28, 2018 Decision to Disposition Time: 12:38 Depart Departure Latest Vital Signs Vital Signs Date Time Temp Pulse Resp B/P (MAP) Pulse Ox O2 Delivery O2 Flow Rate FiO2 07/28/18 12:44 74 97 Nasal Cannula 2 07/28/18 12:09 132/95 (107) 07/28/18 11:40 101.0 18 Impression: Primary Impression: Cellulitis of left foot Condition: Improved Disposition: Admitted from ER (to Dr Davies) GUCCI QUINTERO MD Jul 28, 2018 12:24
[2018-07-28 13:17] VITALS: BP 126/59
--- NOTE | 2018-07-28 15:29 | RADIOLOGY IMAGING REPORT ---
FACILITY: [facility] [place] PATIENT NAME: Hieu De Leon : 1955 MR: [id number] V: [id number] EXAM DATE: ORDERING PHYSICIAN: GUCCI QUINTERO TECHNOLOGIST: Location: [facility] [place] Patient: Hieu De Leon : 1955 Visit/Account:[id number] Date of Sevice: 07/28/2018 FOOT 3 VIEW LEFT Indication: Left foot pain infection. Comparison: 02/07/2018. Findings: 3 views of the left foot. Mild osteoarthritis of the 1st MTP and 1st interphalangeal joints. Mild osteoarthritis of the midfoo t. Otherwise normal mineralization, joint spaces, and alignment. Small posterior calcaneal bone spur. Impression: No acute osseous abnormality of the left foot. Report Dictated By: Darrick Helton MD at 07/28/2018 3:22 PM Report E-Signed By: Darrick Helton MD at 07/28/2018 3:24 PM WSN:[email or web address]
--- NOTE | 2018-07-28 16:10 | History & Physical ---
History of Present Illness History of Present Illness 63yo male with a h/o peripheral neuropathy who was sent to the ER by the wound care clinic for concern of cellulitis. Last night, he had some chills. This morning his left ankle was a bit uncomfortable. In the wound care clinic, when he took of his sock on the left foot he saw redness on the top of the foot. He has been receiving therapy on the plantar aspect of the left great toe for 2.5 years. It is slowly getting better. No reported trauma to the foot. He is very diligent about checking his feet daily. History Problems: (1) Neuropathy, peripheral Status: Chronic (2) History of back surgery (3) History of cholecystectomy (4) History of tonsillectomy (5) History of amputation of toe Home Meds Reported Medications Naproxen Sodium (ALEVE) 220 Mg Capsule, 220 MG PO TID PRN for PAIN, CAPSULE 02/10/18 Gabapentin (GABAPENTIN) 800 Mg Tablet, 800 MG PO BID 02/07/18 Tramadol Hcl (TRAMADOL HCL) 100 Mg Tab.er.24h, 2 TAB PO BID 10/26/16 Omeprazole Magnesium (PRILOSEC OTC) 20 Mg Tablet.dr, 2 TAB PO QDAY, TAB 10/26/16 Discontinued Scripts Sulfamethoxazole/Trimet 800-160 Mg Tab (BACTRIM DS TABLET) 1 Each Tablet, 1 TAB PO Q12H, #14 MG 0 Refills TAKE ONE TABLET BY MOUTH EVERY TWELVE HOURS Prov:REYES MADRIGAL MD 05/07/18 Allergies: Coded Allergies: duloxetine HCl (Verified Allergy, Severe, SORES UNDER ARMS, 07/28/18) pregabalin (Verified Allergy, Severe, SORES UNDER ARMS, 07/28/18) gemfibrozil (Verified Allergy, Unknown, 07/28/18) EHR CONVERSION Patient History: FH: diabetes mellitus Family member FH: heart failure FATHER FH: neuropathy FATHER Other Social/Family Hx No alcohol use. He does smoke 2-3 cigarettes/day. He is . He is retir ed, but now makes custom furniture. Hx Smoking: Yes Smoking Status: Current: Every Day Smoker Caffeine Intake: Coffee, Soda Caffeine/Cups Per Day: 32 OZ DAILY Hx Alcohol Use: No Hx Substance Use Disorder: No Social Drug Use: Never Social Drugs: Marijuana, Cocaine Amount Of Social Drug/s Used: PLAYING IN A BAND IN HIS 20'S Review of Systems All Systems Reviewed/Normal: Yes, Except as Noted Exam Vital Signs Vital Signs Date Time Temp Pulse Resp B/P (MAP) Pulse Ox O2 Delivery O2 Flow Rate FiO2 07/28/18 13:17 99.2 65 14 126/59 (81) 91 Nasal Cannula 1.0 General Appearance: Alert, Awake, No Acute Distress Eyes: PERRLA ENT: Moist Mucous Membranes Cardiovascular: Regular Rate and Rhythm, No JVD Respiratory: Clear to Auscultation GI: Abd Soft and Non-Tender Extremities: No Edema; Other (Left foot - erythema and mild swelling on dorsum. Left great toe with some madrigal crust appearing scab on dorsal medial aspect with more swelling around that area. Not able to express any purulent material. ) Integumentary: No Jaundice, No Cyanosis Medical Decision Making Data Points Result Diagram: 07/28/18 1158 07/28/18 1158 Item Value Date Time Lactate 2.1 mmol/L 07/28/18 1158 Total Bilirubin 1.1 mg/dl 07/28/18 1158 Aspartate Amino Transf (AST/SGOT) 25 U/L 07/28/18 1158 Alanine Aminotransferase (ALT/SGPT) 33 U/L 07/28/18 1158 Alkaline Phosphatase 89 U/L 07/28/18 1158 C-Reactive Protein 7.5 mg/dl H 07/28/18 1158 Total Protein 8.6 g/dl H 07/28/18 1158 Albumin 4.3 g/dl 07/28/18 1158 Neutrophils (%) (Auto) 83.4 % H 07/28/18 1158 Lymphocytes (%) (Auto) 8.5 % L 07/28/18 1158 Monocytes (%) (Auto) 7.8 % 07/28/18 1158 Eosinophils (%) (Auto) 0.2 % L 07/28/18 1158 Basophils (%) (Auto) 0.1 % L 07/28/18 1158 Nucleated RBC Relative Count (auto) 0.1 /100WBC 07/28/18 1158 EKG / Imaging Imaging Foot Xray - No acute osseous abnormality of the left foot. Assessment and Plan Problems: (1) Cellulitis of left foot Status: Acute Assessment & Plan: He presented with chills last night and then a rapidly progressive erythema on the left foot today. He was febrile in the ER. The erythema had starting streaking up the medial calf, but it is now less intense. Will continue Zosyn. BP/P stable. (2) Neuropathy, peripheral Status: Chronic Assessment & Plan: Etiology unknown. Continue chronic tramadol and gabapentin. 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 Will ask wound care to see him. Copies to: JUDY HUI DO; AUBREY NAGEL MD ; Venous Thromboembolism Antithrombotics Is Pt On Any Antithrombotics?: No Exam Sepsis Risk: No Definite Risk KAITLIN OVERTON MD Jul 28, 2018 16:10
[2018-07-28 16:36] VITALS: BP 154/75
[2018-07-28] MEDS ORDERED: NS(*) 0.9% 500 ML BAG 500 ML ONE (17:25)
[2018-07-28] MEDS: PANTOPRAZOLE SOD 40 MG TABEC PO SCH (17:28)
[2018-07-28] MEDS: traMADol 50 MG TAB PO SCH (17:28)
[2018-07-28] MEDS: GABAPENTIN 300 MG CAP PO SCH (17:29)
[2018-07-28] MEDS: GABAPENTIN 100 MG CAP PO SCH (17:29)
[2018-07-28] MEDS: PIPERACILLIN/TAZO*3.375GM VIAL 3.375 GM in NS(*) 0.9% 100 ML ADDVANT BAG 100 ML IVPB SCH ×2 (18:15→23:30)
[2018-07-28] MEDS: ACETAMINOPHEN 500 MG TAB PO PRN (19:14)
[2018-07-28 19:53] VITALS: BP 133/60
[2018-07-28 23:26] VITALS: BP 127/71
[2018-07-29] VITALS (7 sets, daily range): BP systolic 108–171; BP diastolic 65–110; Ht 195.6 cm; Wt 126.1 kg
[2018-07-29] MEDS: GABAPENTIN 300 MG CAP PO SCH ×2 (05:24→17:04)
[2018-07-29] MEDS: PIPERACILLIN/TAZO*3.375GM VIAL 3.375 GM in NS(*) 0.9% 100 ML ADDVANT BAG 100 ML IVPB SCH ×3 (05:24→18:17)
[2018-07-29] MEDS: ACETAMINOPHEN 500 MG TAB PO PRN ×2 (05:25→15:33)
[2018-07-29] MEDS: traMADol 50 MG TAB PO SCH ×2 (05:25→17:04)
[2018-07-29] MEDS: GABAPENTIN 100 MG CAP PO SCH ×2 (05:25→17:04)
[2018-07-29 05:52] LABS: PLATELET COUNT, AUTOMATED 119 K/uL (150-450)
[2018-07-29] MEDS ORDERED: VANCOMYCIN(*) 1 GM VIAL 2.5 GM in NS(*) 0.9% 500 ML BAG 500 ML IVPB ONE (09:00)
[2018-07-29] MEDS: ENOXAPARIN 40 MG/0.4ML SYR SC SCH (09:09)
--- NOTE | 2018-07-29 11:51 | Hospitalist Progress Note ---
Subjective Progress Notes Subjective He reports some sweats this AM. Low grade temp noted. Physical Exam Vital Signs Date Time Temp Pulse Resp B/P (MAP) Pulse Ox O2 Delivery O2 Flow Rate FiO2 07/29/18 11:00 99.5 78 22 149/110 (123) 90 Room Air 07/28/18 23:26 1.0 Intake and Output 07/29/18 06:59 Intake Total 1882 ml Balance 1882 ml Intake Oral 582 ml IV Total 1300 ml # Voids 1 General Appearance: Alert, Awake Integumentary: Other (Great toe dressed. Erythema and edema have almost completely resolved in foot/distal leg (compared to marked boundaries).) Psych: Alert & Oriented X3 Result Diagram: 07/29/1851907/29/18519 Assessment and Plan Problems: (1) Cellulitis of left foot Status: Acute Assessment & Plan: He presented with chills and then a rapidly progressive erythema on the left foot. He was febrile in the ER. The erythema had starting streaking up the medial calf, but it is now much less intense - almost resolved. Both blood cultures had GPC on gram stain. Await culture results. Will continue Zosyn. Now that it appears he has been at least bacteremic, would recommend we h ave him on IV antibiotics until he is at least 48-72 hours afebrile (before potential switch to oral). (2) Neuropathy, peripheral Status: Chronic Assessment & Plan: Etiology unknown. Continue chronic tramadol and gabapentin. (3) Chronic ulcer of great toe of left foot Status: Chronic Assessment & Plan: Followed in the wound clinic and it is much improved - per patient. Will have wound care see him. Exam Sepsis Risk: No Definite Risk ZANE JULIEN MD Jul 29, 2018 11:51
[2018-07-29] MEDS: PANTOPRAZOLE SOD 40 MG TABEC PO SCH (17:04)
[2018-07-29] MEDS ORDERED: VANCOMYCIN(*) 1 GM VIAL 1 GM, VANCOMYCIN HCL 0.750 GM VIAL 0.75 GM in NS(*) 0.9% 250 ML... IVPB SCH (21:00)
[2018-07-30] MEDS: PIPERACILLIN/TAZO*3.375GM VIAL 3.375 GM in NS(*) 0.9% 100 ML ADDVANT BAG 100 ML IVPB SCH ×4 (00:01→17:12)
[2018-07-30 04:32] VITALS: BP 106/74
[2018-07-30] MEDS: GABAPENTIN 100 MG CAP PO SCH ×2 (04:35→17:08)
[2018-07-30] MEDS: traMADol 50 MG TAB PO SCH ×2 (04:35→17:09)
[2018-07-30] MEDS: GABAPENTIN 300 MG CAP PO SCH ×2 (04:36→17:09)
[2018-07-30 08:17] LABS: PLATELET COUNT, AUTOMATED 119 K/uL (150-450)
[2018-07-30] MEDS: ENOXAPARIN 40 MG/0.4ML SYR SC SCH (09:39)
[2018-07-30] MEDS: VANCOMYCIN(*) 1 GM VIAL 1 GM, VANCOMYCIN HCL 0.750 GM VIAL 0.75 GM in NS(*) 0.9% 250 ML... IVPB SCH ×2 (09:40→17:49)
[2018-07-30 09:52] VITALS: BP 141/70
--- NOTE | 2018-07-30 11:44 | Hospitalist Progress Note ---
Subjective Progress Notes Subjective 63M admitted for L AC abscess, bacteremia, sepsis. GWYN overnight, await Cx and sensitivity. Discussed if this is same bacteria would recommend transfer fro [facility]. Patient Complains of: Gastrointestinal: No Nausea, No Vomiting Physical Exam Vital Signs Date Time Temp Pulse Resp B/P (MAP) Pulse Ox O2 Delivery O2 Flow Rate FiO2 07/30/18 09:52 98.0 58 20 141/70 (93) 92 Room Air 07/30/18 04:32 1.5 Intake and Output 07/30/18 07:00 Intake Total 2080 ml Balance 2080 ml Intake Oral 1500 ml IV Total 580 ml # Voids 2 General Appearance: Alert, Awake, No Acute Distress Neuro: No Gross deficits Eyes: PERRLA ENT: Other (poor dentition) Cardiovascular: Normal Rhythm & Peripheral Pulses (tachycardic) Respiratory: No Respiratory Distress GI: Soft and Non-Tender Musculoskeletal: No Weakness/Pain Extremities: Soft and Non Tender, Warm, Pulses, Perfused, Edema (b/l UE) Integumentary: Skin Intact without Lesion / Mass Psych: Alert & Oriented X3 Result Diagram: 07/30/18 0802 07/30/18801 Assessment and Plan Problems: (1) Cellulitis of left foot Status: Acute Assessment & Plan: He presented with chills and then a rapidly progressive erythema on the left foot. He was febrile in the ER. The erythema had starting streaking up the medial calf, but it is now much less intense - almost resolved. Both blood cultures had GPC on gram stain. Await culture results, on Vancomycin and Zosyn. ECHO pending, repeat BCx ordered for tomorrow. (2) Neuropathy, peripheral Status: Chronic Assessment & Plan: Etiology unknown. Continue chronic tramadol and gabapentin. (3) Chronic ulcer of great toe of left foot Status: Chronic Assessment & Plan: Followed in the wound clinic and it is much improved - per patient. Will have wound care see him. Exam Sepsis Risk: No Definite Risk BAIG ROSA ARTHUR DO Jul 30, 2018 11:44
[2018-07-30 11:49] VITALS: BP 142/81
[2018-07-30 14:32] VITALS: BP 155/83
[2018-07-30] MEDS: PANTOPRAZOLE SOD 40 MG TABEC PO SCH (17:08)
--- NOTE | 2018-07-30 17:19 | Antimicrobial Stewardship ---
Antimicrobial Stewardship Empiricly appropriate: Yes Comment On Vancomycin and Zosyn. Approriate Cultures done: Yes (Growing Staphylococcus coagulase positive. Waiting on ID and sensitivities.) Serum concentration checked: Yes Comment Vanco trough today 9.66 so increased to Vancomycin to 1.75 g IV q8h Reviewed for Drug Interaction: Yes Monitored for Toxicities: Yes Clinically stable/improving: Yes Comment Streaks going up leg improving. IV to PO Opportunity: No Determine cumulative duration: 7-14 days depending on improvement. Comment Continue current regimen until ID and sensitivities are back then can de- escalate as necessary. KRISTIAN ROLLINS Jul 30, 2018 17:19
[2018-07-30] MEDS: ACETAMINOPHEN 500 MG TAB PO PRN (17:26)
[2018-07-30 18:51] VITALS: BP 146/79
[2018-07-30] MEDS ORDERED: diphenhydrAMINE 25 MG CAP PO PRN (19:35)
[2018-07-31] MEDS: PIPERACILLIN/TAZO*3.375GM VIAL 3.375 GM in NS(*) 0.9% 100 ML ADDVANT BAG 100 ML IVPB SCH ×2 (00:08→06:18)
[2018-07-31] MEDS: VANCOMYCIN(*) 1 GM VIAL 1 GM, VANCOMYCIN HCL 0.750 GM VIAL 0.75 GM in NS(*) 0.9% 250 ML... IVPB SCH ×2 (01:20→10:21)
[2018-07-31] MEDS: GABAPENTIN 300 MG CAP PO SCH (06:18)
[2018-07-31] MEDS: GABAPENTIN 100 MG CAP PO SCH (06:18)
[2018-07-31] MEDS: traMADol 50 MG TAB PO SCH (06:18)
[2018-07-31 08:09] VITALS: BP 130/88
[2018-07-31] MEDS: ENOXAPARIN 40 MG/0.4ML SYR SC SCH (09:00)
[2018-07-31] MEDS ORDERED: INFLUENZA VIRUS VAC 0.5ML SYR IM ONLY ONE (09:00)
[2018-07-31 09:28] LABS: PLATELET COUNT, AUTOMATED 125 K/uL (150-450)
[2018-07-31] MEDS ORDERED: CEPH500T7 PO (10:01)
--- NOTE | 2018-07-31 10:07 | Hospitalist Depart ---
Discharge Summary Reason for Hosp/Final Diag: (1) Cellulitis of left foot Status: Acute Hospital Course & Plan: He did present with rapidly progressing erythema of the left foot. He was started on empiric treatment with Zosyn. Vancomycin was added when his blood cultures returned positive for gram positive cocci. His cultures have now shown a sensitive Staphylococcus Aureus. He will discharge on a 2 week course of oral Keflex. He has been instructed to follow up with his primary physician prior to completing the antibiotics. (2) Neuropathy, peripheral Status: Chronic Hospital Course & Plan: The etiology unknown. He is on chronic treatment with tramadol and gabapentin. (3) Chronic ulcer of great toe of left foot Status: Chronic Hospital Course & Plan: He is being followed in the wound care clinic and will resume his appointments after discharge. Departure Latest Vital Signs Vital Signs 07/30/18 07/31/18 07/31/18 07/31/18 18:51 08:09 09:03 09:17 Temp 98.7 Pulse 58 Resp 16 B/P (MAP) 130/88 (102) Pulse Ox 90 O2 Delivery Room Air O2 Flow Rate 1.0 Weight (Pounds): 278 Result Diagram: 07/31/18 0914 07/30/18 0802 Condition: Improved Discharge: Home, Self Care PT/OT Follow Up For: Other (Wound care in outpatient PT.) Discharge Instructions Home Meds Active Scripts Cephalexin 500 Mg Tab (KEFLEX 500 MG TAB) 500 Mg Tablet, 500 MG PO Q6H, #56 TAB Prov:JOSE PERRIN DO 07/31/18 Reported Medications Naproxen Sodium (ALEVE) 220 Mg Capsule, 220 MG PO TID PRN for PAIN, CAPSULE 02/10/18 Gabapentin (GABAPENTIN) 800 Mg Tablet, 800 MG PO BID 02/07/18 Tramadol Hcl (TRAMADOL HCL) 100 Mg Tab.er.24h, 2 TAB PO BID 10/26/16 Omeprazole Magnesium (PRILOSEC OTC) 20 Mg Tablet.dr, 2 TAB PO QDAY, TAB 10/26/16 Discontinued Scripts Sulfamethoxazole/Trimet 800-160 Mg Tab (BACTRIM DS TABLET) 1 Each Tablet, 1 TAB PO Q12H, #14 MG 0 Refills TAKE ONE TABLET BY MOUTH EVERY TWELVE HOURS Prov:REYES MADRIGAL MD 05/07/18 Diet: Regular Activity: As Tolerated Copies to: WEFEL,AUBREY MD ; Venous Thromboembolism Antithrombotics Is Pt On Any Antithrombotics?: No JOSE PERRIN DO Jul 31, 2018 10:07
== END 2018-07-31 12:45 | disposition home or self-care (01) | DRG 603 ==
LOC: ER 11:40 → MED 12:47
PROVIDERS: ADMIT Internal Medicine; ATTEND Internal Medicine
PROC: 0HDNXZZ Extraction of Left Foot Skin, External Approach (ICD-10-PCS; principal; 2018-07-28)
PROC: 5A09357 Assistance with Respiratory Ventilation, Less than 24 Consecutive Hours, Continuous Positive Airway Pressure (ICD-10-PCS; 2018-07-30)
DX: L03.116 Cellulitis of left lower limb (principal); L97.521 Non-pressure chronic ulcer of other part of left foot limited to breakdown of skin; B95.61 Methicillin susceptible Staphylococcus aureus infection as the cause of diseases classified elsewhere; G62.9 Polyneuropathy, unspecified; I73.9 Peripheral vascular disease, unspecified; Z90.49 Acquired absence of other specified parts of digestive tract; Z88.8 Allergy status to other drugs, medicaments and biological substances
CPT/HCPCS: 36415; 80202; 82040; 82247; 82310; 82374; 82435; 82565; 82947; 83605; 84075; 84132; 84155; 84295; 84450; 84460; 84520; 85025; 85651; 86140; 87040; 87077; 87186; 90674; 93306; 96361; 96365; 97161; 99284; J1650; J2543; J3370; J7030; J7040; J7050; Q0163

== ENCOUNTER 2018-08-04 09:47 | Outpatient (RCR) | payer OTHER ==
[2018-07-29 12:29] VITALS: BMI 33.0
[~2018-08-04 09:47] MED LIST changes: -GABA-506 PO; +GABA-507 PO
--- NOTE | 2018-08-12 09:33 | PT INITIAL EVALUATION ---
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 Redness previously noted during hospitalization for cellulitis and sepsis has resolved, as has the edema in L) great toe. Pt notes that he is scheduled for a follow up with Dr. Valdez (ortho foot and ankle specialist) for R) second toe amputation site and plans to discuss L) great toe wound healing with surgeon at that time, on 08/07/18. REHAB PROBLEM LIST: Chronic wound at L) great toe with some improvement noted after total contact casting. Pt non-compliant with off loading by other means and then declined to have cast placed back on prior to hunting. PREVIOUS MEDICAL HISTORY: idiopathic neuropathy OCCUPATION: Wood working; self employed OBJECTIVE: L) great toe; plantar surface of IP joint. Wound measures 0.5cm L x 0.5cm W x 0.3cm D. ASSESSMENT: PT re-eval completed for wound at L) great toe, plantar surface of IP joint, following recent hospitalization for cellulitis in this LE. Pt arrives with wound improved as compared to hospital eval, but larger than previous out pt visit. Non-excisional debridement completed with the use of scissors and tweezers to a depth of subcutaneous tissue in order to remove calloused and non-viable tissue as well as loosely adhered slough. Wound cleansed with sterile saline and absorbant layer of qwick applied, secured with bordered gauze pad. Discussed follow up care with regard to total contact casting, as this was previously allowing the wound bed to be properly off loaded and significant improvement in wound healing was noted, until pt requested for the cast not to be reapplied. Pt states that he only has 11 days until he plans to travel to [place] for the holidays and states that he will not wear a cast while he is hunting in [place]. With encouragement, pt is agreeable to applying a cast weekly and consistently until the site is fully healed, after he returns. Pt to continue with traditional dressing changes and follow up with PT once weekly to monitor for signs/symptoms of infection until he is ready to aggressively address off loading as indicated with non-healing wound. Short Term Goals 1. Definitive testing to understand cause behind non-healing wound. Pt is agreeable to follow up with specialist for further diagnosis. (11/15/18) 2. Pt to maintain a clean, dry and intact dressing between visits with dressing changes as needed in the home environment. (ongoing) 3. Pt to off load wound site as much as able and verbalize understanding that this is likely a contributing factor to delayed healing. (not met, ongoing) *Pt had been agreeable to application of cast x initial 48 hours with excellent results. With strong encouragement and modification of cast, pt then tolerated one further week, again with improvement noted at wound bed. Pt then requested cast to be removed for hunting and then returned to next PT visit with signs and symptoms of aggressive cellulitis and was admitted to the hospital with sepsis as well. Patient's Goals Wound to heal without impacting his lifestyle. PLAN: Patient to be seen for conservative, sharps debridement as well as advanced wound care product selection and application to facilitate wound healing. PT continues to recommend more aggressive offloading of the area, such as total contact casting which would require follow up through Dr. Collins's office for application. Pt is scheduled with Dr. Collins on 08/25/18 after he returns from his vacation in [place]. Pt is also scheduled with Dr. Valdez (ortho foot and ankle specialist) to discuss carbon fiber insoles to off load this area as well. The patient has been resistant to anything that will impact his lifestyle with aggressive off loading and since recent hospitalization is even more resistant to casting, as he feels this was the cause of the infection. 1x/Week for up to 3 months Thank you for this referral. If you have any questions, comments, or concerns about this report or plan, please contact me at . H. Nelly Garcia, PT, MPT, OMS MTDD
--- NOTE | 2018-09-02 16:28 | PT PLAN OF CARE ---
Physician: Dr. 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 PT continues to recommend more aggressive offloading of the area, such as total contact casting which would require follow up through Dr. Collins's office for application. Pt is scheduled with Dr. Collins on 08/25/18 after he returns from his vacation in [place]. Pt is also scheduled with Dr. Valdez (ortho foot and ankle specialist) to discuss carbon fiber insoles to off load this area as well. The patient has been resistant to anything that will impact his lifestyle with aggressive off loading. GOALS: 1. Definitive testing to understand cause behind non-healing wound. Pt is agreeable to follow up with specialist for further diagnosis. (08/07/18) 2. Pt to maintain a clean, dry and intact dressing between visits with dressing changes as needed in the home environment. (met) 3. Pt to off load wound site as much as able and verbalize understanding that this is likely a contributing factor to delayed healing. (met) PATIENT'S GOAL: Wound to heal without impacting his lifestyle. Status of Patient's Goals: Wound appears healed without further drainage an no further casting required. Patient Compliance: Minimal Prognosis: Fair Reasons for continuing therapy: None at this time; wound appears healed with no drainage noted on dressing and no drainage visible beneath callused area. Pt was seen on 08/04/18 for re-eval, as pt has been treated for greater than 3 months. Pt then was out of town for vacation and then was seen first by Dr. Valdez and then by Dr. Collins for follow up's with wound demonstrating full healing at today's visit with Dr. Collins's office. No further visits planned at this time. Thank you for this referral. If you have any questions, comments, or concerns about this report or plan, please contact me at . H. Nelly Garcia, PT, MPT, OMS MTDD
== END 2018-09-03 18:00 | disposition home or self-care (01) ==
LOC: PT 09:47
PROVIDERS: ATTEND Family Medicine
DX: L97.522 Non-pressure chronic ulcer of other part of left foot with fat layer exposed (principal)
CPT/HCPCS: 97161

== ENCOUNTER 2018-08-09 16:43 | Emergency (ER) | payer OTHER ==
[2018-07-29 12:29] VITALS: Wt 122.9 kg
[~2018-08-09 16:43] MED LIST changes: +GABA-506 PO; -GABA-507 PO
--- NOTE | 2018-08-09 17:14 | ER Report ---
History and Physical Time Seen By MD: 17:00 Hx. of Stated Complaint: RIGHT ARM PAINFUL, NUMB, COLD, WHITE STARTED YESTERDAY. PT WAS RECENTLY ADMITTED FOR IV ANTIBIOTICS. (GUCCI WAGONER MD) HPI/ROS CHIEF COMPLAINT: tingling right upper extremity HISTORY OF PRESENT ILLNESS: Patient is 6 days status post Hospital discharged after 4 day stay for left lower extremity cellulitis and sepsis. He has diabetes with peripheral neuropathy and is a smoker. He states that yesterday morning at 8:00 when he was standing he noted paresthesias and coldness in his right second third and fourth finger. He states he had not had this before. He states that symptoms have been persistent for the last 36 hours so he presented today. He states that this may have happened 2 days ago but he just didn't notice. He denies swelling in the forearm or arm, shortness breath, chest pain, neck pain, headache, muscle weakness, fevers, chills. He denies prior blood clots. He denies palpitations or history of arrhythmia. REVIEW OF SYSTEMS: Constitutional: No fever, no chills. Eyes: No discharge. ENT: No sore throat. Cardiovascular: No chest pain, no palpitations. Respiratory: No cough, no shortness of breath. Gastrointestinal: No abdominal pain, no vomiting. Genitourinary: no dysuria Musculoskeletal: no back or neck pain Skin: No rashes. Neurological: No headache. Remainder of the 14 system rev: Yes (GUCCI WAGONER MD) Allergies: Coded Allergies: duloxetine HCl (Verified Allergy, Severe, SORES UNDER ARMS, 08/09/18) pregabalin (Verified Allergy, Severe, SORES UNDER ARMS, 08/09/18) gemfibrozil (Verified Allergy, Unknown, 08/09/18) EHR CONVERSION Home Meds Active Scripts Cephalexin 500 Mg Tab (KEFLEX 500 MG TAB) 500 Mg Tablet, 500 MG PO Q6H, #56 TAB Prov:AYDINJOSE DO 07/31/18 Reported Medications Naproxen Sodium (ALEVE) 220 Mg Capsule, 220 MG PO TID PRN for PAIN, CAPSULE 02/10/18 Gabapentin (GABAPENTIN) 800 Mg Tablet, 800 MG PO BID 02/07/18 Tramadol Hcl (TRAMADOL HCL) 100 Mg Tab.er.24h, 2 TAB PO BID 10/26/16 Omeprazole Magnesium (PRILOSEC OTC) 20 Mg Tablet.dr, 1 TAB PO QDAY, TAB 10/26/16 Reviewed Nurses Notes: Yes Old Medical Records Reviewed: Yes (GUCCI WAGONER MD) Hx Smoking: Yes Smoking Status: Current: Every Day Smoker Hx Substance Use Disorder: No Hx Alcohol Use: No (GUCCI WAGONER MD) Constitutional Vital Sign - Last 24 Hours 08/09/18 08/09/18 08/09/18 08/09/18 16:46 16:46 17:00 17:15 Temp 97.6 Pulse 68 81 74 Resp 18 23 15 B/P (MAP) 142/111 142/111 (121) 125/89 (101) Pulse Ox 89 91 89 O2 Delivery Room Air 08/09/18 08/09/18 08/09/18 08/09/18 17:30 17:45 18:00 18:15 Pulse 75 66 59 70 Resp 25 23 18 35 B/P (MAP) 122/87 (99) 139/86 (103) Pulse Ox 90 92 90 93 08/09/18 18:30 Resp 21 B/P (MAP) 123/87 (99) Pulse Ox 92 (VANESSA OROZCO DO) Physical Exam General Appearance: The patient is alert, has no immediate need for airway protection and no signs of toxicity. [ ] Eyes: Pupils equal and round no pallor or injection. ENT, Mouth: Mucous membranes are moist. Respiratory: There are no retractions, lungs are clear to auscultation. Cardiovascular: rrr no m/r/g Gastrointestinal: Abdomen is soft and non tender, no masses, bowel sounds normal. Neurological: cn ii-xii intact, decrased lt touch r 2nd, 3rd, 4th distal digit. 5/5 ms throughout Skin: Warm and dry, no rashes. 2+ r radial, r ulnar pulse. delayed cr r 2-4th finger Musculoskeletal: Neck is supple non tender. Extremities are nontender, nonswollen and have full range of motion. DIFFERENTIAL DIAGNOSIS: After history and physical exam differential diagnosis was considered for dvt/arterial thrombus rue, nerve compression, cva, or other emergent etiology (GUCCI WAGONER MD) Medical Decision Making Data Points Result Diagram: 08/09/18 1722 08/09/18 1722 Laboratory Hematology Test 08/09/18 17:22 Red Blood Count 5.83 M/uL (4.00-5.60) Mean Corpuscular Volume 86.3 fL (80.0-96.0) Mean Corpuscular Hemoglobin 30.1 pg (26.0-33.0) Mean Corpuscular Hemoglobin Concent 34.8 g/dL (32.0-36.0) Red Cell Distribution Width 15.5 % (11.5-14.5) Mean Platelet Volume 7.5 fL (7.2-11.1) Neutrophils (%) (Auto) 62.3 % (39.4-72.5) Lymphocytes (%) (Auto) 24.0 % (17.6-49.6) Monocytes (%) (Auto) 10.1 % (4.1-12.4) Eosinophils (%) (Auto) 2.9 % (0.4-6.7) Basophils (%) (Auto) 0.7 % (0.3-1.4) Nucleated RBC Relative Count (auto) 0.1 /100WBC Neutrophils # (Auto) 6.3 K/uL (2.0-7.4) Lymphocytes # (Auto) 2.4 K/uL (1.3-3.6) Monocytes # (Auto) 1.0 K/uL (0.3-1.0) Eosinophils # (Auto) 0.3 K/uL (0.0-0.5) Basophils # (Auto) 0.1 K/uL (0.0-0.1) Nucleated RBC Absolute Count (auto) 0.01 K/uL D-Dimer Quantitative (PE/DVT) 0.76 ug/ml (0-0.50) Sodium Level 139 mmol/L (137-145) Potassium Level 4.0 mmol/L (3.5-5.0) Chloride Level 105 mmol/L (98-107) Carbon Dioxide Level 23 mmol/L (22-30) Blood Urea Nitrogen 18 mg/dl (9-21) Creatinine 1.00 mg/dl (0.66-1.25) Glomerular Filtration Rate Calc > 60.0 Random Glucose 168 mg/dl (75-110) Calcium Level 9.4 mg/dl (8.4-10.2) Phosphorus Level 3.9 mg/dl (2.5-4.5) Magnesium Level 2.1 mg/dl (1.7-2.2) Total Bilirubin 0.4 mg/dl (0.2-1.3) Aspartate Amino Transf (AST/SGOT) 25 U/L (0-35) Alanine Aminotransferase (ALT/SGPT) 31 U/L (0-56) Alkaline Phosphatase 90 U/L (0-126) Total Protein 8.3 g/dl (6.3-8.2) Albumin 4.1 g/dl (3.5-5.0) Chemistry Test 08/09/18 17:22 White Blood Count 10.1 k/uL (4.5-11.0) Red Blood Count 5.83 M/uL (4.00-5.60) Hemoglobin 17.5 g/dL (14.0-18.0) Hematocrit 50.4 % (42.0-52.0) Mean Corpuscular Volume 86.3 fL (80.0-96.0) Mean Corpuscular Hemoglobin 30.1 pg (26.0-33.0) Mean Corpuscular Hemoglobin Concent 34.8 g/dL (32.0-36.0) Red Cell Distribution Width 15.5 % (11.5-14.5) Platelet Count 285 K/uL (150-450) Mean Platelet Volume 7.5 fL (7.2-11.1) Neutrophils (%) (Auto) 62.3 % (39.4-72.5) Lymphocytes (%) (Auto) 24.0 % (17.6-49.6) Monocytes (%) (Auto) 10.1 % (4.1-12.4) Eosinophils (%) (Auto) 2.9 % (0.4-6.7) Basophils (%) (Auto) 0.7 % (0.3-1.4) Nucleated RBC Relative Count (auto) 0.1 /100WBC Neutrophils # (Auto) 6.3 K/uL (2.0-7.4) Lymphocytes # (Auto) 2.4 K/uL (1.3-3.6) Monocytes # (Auto) 1.0 K/uL (0.3-1.0) Eosinophils # (Auto) 0.3 K/uL (0.0-0.5) Basophils # (Auto) 0.1 K/uL (0.0-0.1) Nucleated RBC Absolute Count (auto) 0.01 K/uL D-Dimer Quantitative (PE/DVT) 0.76 ug/ml (0-0.50) Glomerular Filtration Rate Calc > 60.0 Calcium Level 9.4 mg/dl (8.4-10.2) Phosphorus Level 3.9 mg/dl (2.5-4.5) Magnesium Level 2.1 mg/dl (1.7-2.2) Total Bilirubin 0.4 mg/dl (0.2-1.3) Aspartate Amino Transf (AST/SGOT) 25 U/L (0-35) Alanine Aminotransferase (ALT/SGPT) 31 U/L (0-56) Alkaline Phosphatase 90 U/L (0-126) Total Protein 8.3 g/dl (6.3-8.2) Albumin 4.1 g/dl (3.5-5.0) Coagulation Test 08/09/18 17:22 D-Dimer Quantitative (PE/DVT) 0.76 ug/ml (VANESSA OROZCO DO) EKG/Imaging EKG Interpretation 12 lead EKG: Rhythm: normal sinus rhythm [place]: left QRS: normal ST segments: normal no stemi Monitor Interpretation: Normal Sinus Rhythm (GUCCI WAGONER MD) Imaging Results: Ultrasound of the right upper extremity venous Doppler was obtained. The results of the study are EXAMINATION: Right Upper Extremity Venous Ultrasound HISTORY: Delayed cap refill, tingling of fingers, vasculopath TECHNIQUE: Ultrasound evaluation of the right upper extremity veins was performed with color and spectral Doppler and compression views. COMPARISON: None. FINDINGS: The right internal jugular vein is patent and compressible. The right subclavian vein appears patent by color and spectral Doppler. The right axillary, brachial, cephalic, basilic, radial, and ulnar veins are patent and compressible, without evidence of intraluminal thrombus. IMPRESSION: Normal exam. No evidence of DVT in the right upper extremity. The study was read by the radiologist. I viewed the images myself on the PACS system. Results: Ultrasound of the arterial ultrasound right upper extremity was obtained. The results of the study are EXAMINATION: Right upper extremity duplex Doppler ultrasound HISTORY: Delayed capillary refill, tingling in the fingers, vasculopath TECHNIQUE: Ultrasound evaluation of the right upper extremity arteries was performed with grayscale imaging and color and spectral Doppler analysis. COMPARISON: None. FINDINGS: Peak systolic velocities (cm/s): Subclavian artery: 70 Axillary artery: 109 Proximal brachial artery: 103 Mid brachial artery: 113 Distal brachial artery: 62 Proximal radial artery: 115 Distal radial artery: 79 Proximal ulnar artery: 52 Distal ulnar artery: 29 No significant plaque is visualized along the right upper extremity arteries. Normal velocities and triphasic waveforms throughout the imaged arteries. No ultrasound evidence for arterial occlusive disease or focal stenosis. IMPRESSION: Normal exam. No evidence of arterial occlusive disease or focal stenosis in the right upper extremity arteries. The study was read by the radiologist. I viewed the images myself on the PACS system. (VANESSA OROZCO DO) ED Course/Re-evaluation ED Course t/o to Dr. Orozco at 1800 awaiting US, re-evaluation. Anticipate d/c with close f/u if w/up neg and no progressive sympotms. (GUCCI WAGONER MD) ED Course Care was assumed at shift change from Dr. Ian Wagoner with diagnostic ultrasound of the right upper extremity of the arterial and venous system. Pending. History was reviewed. A brief exam was performed. Patient's ultrasounds were unremarkable. On further review. Patient admits to which ring his antelope. He was pulling a knife and cutting meat for aching extended period time, which would suggest carpal tunnel as the etiology of the numbness in his 3 fingers. There is some discoloration and redness. The patient may also be suffering radon phenomenon. Patient was advised to resume taking his Daily aspirin. And follow-up with primary care for further evaluation. Decision to Disposition Date: Aug 09, 2018 Decision to Disposition Time: 18:38 (VANESSA OROZCO DO) Depart Departure Latest Vital Signs Vital Signs Date Time Temp Pulse Resp B/P (MAP) Pulse Ox O2 Delivery O2 Flow Rate FiO2 08/09/18 18:30 21 123/87 (99) 92 08/09/18 18:15 70 08/09/18 16:46 97.6 Room Air (VANESSA OROZCO DO) Impression: Primary Impression: Pain in right finger(s) Additional Impression: Raynaud disease Condition: Improved Disposition: HOME OR SELF-CARE Patient Instructions: Raynaud Disease (ED) Additional Instructions: Follow-up with your primary care doctor as planned You may need referral to rheumatology for evaluation Resumed taking aspirin daily Wear gloves and keep your digits from getting cold Your primary care may want to change her blood pressure medicine to a calcium channel terese such as verapamil or diltiazem to prevent spasm of the digital a rteries Problem Qualifiers Additional Impression: Raynaud disease Raynaud?s-associated gangrene presence: without gangrene Qualified Codes: I73.00 - Raynaud's syndrome without gangrene GUCCI WAGONER MD Aug 09, 2018 17:14 VANESSA OROZCO DO Aug 09, 2018 18:40
--- NOTE | 2018-08-09 17:36 | EKG ---
FACILITY: [facility] PATIENT NAME: CHEYENNE LEMUS : [id number] MR: [id number] V: [id number] EXAM DATE: ORDERING PHYSICIAN: GUCCI MURPHY TECHNOLOGIST: COLBY Test Reason : SOB Blood Pressure : / mmHG Vent. Rate : 068 BPM Atrial Rate : 068 BPM P-R Int : 000 ms QRS Dur : 112 ms QT Int : 420 ms P-R-T Axes : 000 -48 043 degrees QTc Int : 446 ms Sinus rhythm with an apparent short run of junctional rhythm Left axis Nonspecific interventricular conduction delay Abnormal ECG Confirmed by ZANE JULIEN ([id number]) on 08/10/2018 5:58:27 AM Referred By: JEFFREY Confirmed By:ZANE JULIEN
[2018-08-09 17:42] LABS: PLATELET COUNT, AUTOMATED 285 K/uL (150-450)
--- NOTE | 2018-08-09 17:49 | RADIOLOGY IMAGING REPORT ---
FACILITY: [facility] - [place] PATIENT NAME: Hieu De Leon : 1955 MR: [id number] V: [id number] EXAM DATE: ORDERING PHYSICIAN: GUCCI MURPHY TECHNOLOGIST: [place] [facility] [place] Patient: Hieu De Leon : 1955 Visit/Account:[id number] Date of Sevice: 08/09/2018 EXAMINATION: Portable AP Chest HISTORY: Shortness of breath. COMPARISON: 05/06/2017. FINDINGS: The lungs are clear. No focal consolidation or pleural effusion. No pneumothorax. Normal cardiomedi astinal silhouette, with normal heart size and pulmonary vascularity. Visualized osseous structures are unremarkable. IMPRESSION: No evidence of acute cardiopulmonary disease. Report Dictated By: Elton Nava MD at 08/09/2018 5:42 PM Report E-Signed By: Elton Nava MD at 08/09/2018 5:45 PM WSN:[id number]
[2018-08-09 18:30] VITALS: BP 123/87
--- NOTE | 2018-08-09 18:56 | RADIOLOGY IMAGING REPORT ---
[place] [facility] [place]IENT NAME: Hieu De Leon : 1955 MR: [id number] V: [id number] EXAM DATE: ORDERING PHYSICIAN: GUCCI MURPHY TECHNOLOGIST: Location: [facility] Patient: Hieu De Leon : 1955 Visit/Account:[id number] Date of Sevice: 08/09/2018 EXAMINATION: Right Upper Extremity Venous Ultrasound HISTORY: Delayed cap refill, tingling of fingers, vasculopath TECHNIQUE: Ultrasound evaluation of the right upper extremity veins was performed with color and spe ctral Doppler and compression views. COMPARISON: None. FINDINGS: The right internal jugular vein is patent and compressible. The right subclavian vein appears patent by color and spectral Doppler. The right axillary, brachial, cephalic, basilic, radial, and ulnar veins are patent and compressible, without evidence of intraluminal thrombus. IMPRESSION: Normal exam. No evidence of DVT in the right upper extremity. Report Dictated By: Elton Nava MD at 08/09/2018 6:50 PM Report E-Signed By: Elton Nava MD at 08/09/2018 6:52 PM WSN:[id number]
--- NOTE | 2018-08-09 19:03 | RADIOLOGY IMAGING REPORT ---
FACILITY: PATIENT NAME: Hieu De Leon : 1955 MR: [id number] V: [id number] EXAM DATE: ORDERING PHYSICIAN: GUCCI MURPHY TECHNOLOGIST: Location: [facility] Patient: Hieu De Leon : 1955 Visit/Account:[id number] Date of Sevice: 08/09/2018 EXAMINATION: Right upper extremity duplex Doppler ultrasound HISTORY: Delayed capillary refill, tingling in the fingers, vasculopath TECHNIQUE: Ultrasound evaluation of the right upper extremity arteries was performed with grayscale i maging and color and spectral Doppler analysis. COMPARISON: None. FINDINGS: Peak systolic velocities (cm/s): Subclavian artery: 70 Axillary artery: 109 Proximal brachial artery: 103 Mid brachial artery: 113 Distal brachial artery: 62 Proximal radial artery: 115 Distal radial artery: 79 Proximal ulnar artery: 52 Distal ulnar artery: 29 No significant plaque is visualized along the right upper extremity arteries. Normal velocities and t riphasic waveforms throughout the imaged arteries. No ultrasound evidence for arterial occlusive dise ase or focal stenosis. IMPRESSION: Normal exam. No evidence of arterial occlusive disease or focal stenosis in the right upper extremity arteries. Report Dictated By: Elton Nava MD at 08/09/2018 6:53 PM Report E-Signed By: Elton Nava MD at 08/09/2018 6:59 PM WSN:[id number]
== END 2018-08-09 18:48 | disposition home or self-care (01) ==
LOC: ER 16:57
DX: M79.644 Pain in right finger(s) (principal); I73.00 Raynaud's syndrome without gangrene; F17.210 Nicotine dependence, cigarettes, uncomplicated; E11.40 Type 2 diabetes mellitus with diabetic neuropathy, unspecified
CPT/HCPCS: 71045; 82040; 82247; 82310; 82374; 82435; 82565; 82947; 83735; 84075; 84100; 84132; 84155; 84295; 84450; 84460; 84520; 85025; 85379; 93005; 93970; 99284

== ENCOUNTER → 2019-03-10 | Outpatient (REF) | payer OTHER ==
[2018-07-29 12:29] VITALS: BMI 33.0
[~2019-03-10] MED LIST changes: -GABA-506 PO; +GABA-535 PO
== END ==
LOC: LAB 09:47
PROVIDERS: ATTEND Physician Assistant
DX: R10.10 Upper abdominal pain, unspecified (principal)
CPT/HCPCS: 85651

== ENCOUNTER → 2019-05-06 | Outpatient (CLI) | payer OTHER ==
[2018-07-29 12:29] VITALS: BMI 33.0
[~2019-05-06] MED LIST changes: +FAMO-67 PO; +PANT40TA65 PO
[2019-05-06 08:11] LABS: PLATELET COUNT, AUTOMATED 182 K/uL (150-450)
== END ==
LOC: LAB 07:46
PROVIDERS: ATTEND Surgery
DX: R10.9 Unspecified abdominal pain (principal); C16.9 Malignant neoplasm of stomach, unspecified
CPT/HCPCS: 36415; 82040; 82247; 82310; 82374; 82435; 82565; 82947; 84075; 84132; 84155; 84295; 84450; 84460; 84520; 85025

== ENCOUNTER → 2019-05-11 | Outpatient (CLI) | payer OTHER ==
[2018-07-29 12:29] VITALS: BMI 33.0
[~2019-05-11] MED LIST changes: +IOPAMIDOL 76% 100 ML INFUS BTL 100 ML ONE
--- NOTE | 2019-05-11 10:31 | RADIOLOGY IMAGING REPORT ---
FACILITY: [facility] [place]IENT NAME: Hieu De Leon : 1955 MR: [id number] V: [id number] EXAM DATE: ORDERING PHYSICIAN: YOLY GARCIA TECHNOLOGIST: Location: [facility] Patient: Hieu De Leon : 1955 Visit/Account:[id number] Date of Sevice: 05/11/2019 CT ABDOMEN PELVIS W/ CON HISTORY: adenocarcinoma of the stomach TECHNIQUE: Following administration of IV contrast contiguous axial images acquired through the abdom en/pelvis. Coronal and sagittal reformatting also performed.Dose Lowering Technique One of the following dose optimization techniques was utilized in the performance of this exam: Autom ated exposure control; adjustment of the mA and/or kV according to the patient's size; or use of an i terative reconstruction technique. Specific details can be referenced in the facility's radiology C T exam operational policy. CONTRAST: 75 mL Isovue-370 COMPARISON: June 13, 2017 FINDINGS: Visualized lung bases: There is a 1.5 x 1.4 cm groundglass nodule in the lateral aspect of the left lower lobe not appreciated on the prior study Hepatobiliary: There are postsurgical changes from a cholecystectomy. There is an area of decreased attenuation adjacent to the falciform ligament likely an area of focal fatty infiltration and appear s similar to the prior study Spleen: Accessory splenule Adrenals: Negative. Pancreas: Negative. Kidneys ureters or bladder: Negative. Genitalia: Prostate gland is mildly enlarged GI: There is diverticulosis of the left side of the colon. There is thickening of the gastric antru m which may be related to patient's reported adenocarcinoma of the stomach Vessels/spaces/nodes: There suggestion of a small amount of thrombus in a branch vessel of the SMV. There are several small portacaval lymph nodes all appearing to measure less than 1 cm in short axis there are several small shotty retroperitoneal lymph nodes. There are mild calcifications in the abd ominal aorta and branch vessels Bones/soft tissues: There is a left inguinal hernia containing fat. There are spondylotic changes o f the lumbar spine Additional findings: None pertinent. IMPRESSION: There is a 1.5 x 1.4 cm groundglass nodule in the lateral aspect left lower lobe which was not apprec iated on the prior study. Short-term interval follow-up recommended as metastasis cannot be excluded Postsurgical changes from a cholecystectomy Diverticulosis left side of the colon There is thickening of the gastric antrum which may be related to patient's reported adenocarcinoma t he stomach There is suggestion of a small amount thrombus in a branch of the SMV Small shotty portacaval and retroperitoneal lymph nodes Left inguinal hernia containing fat Results were called to YOLY GARCIA 's nurse Rosy at 05/11/2019 10:22 AM. Report Dictated By: Elin Morales MD at 05/11/2019 9:43 AM Report E-Signed By: Elin Morales MD at 05/11/2019 10:23 AM WSN:[id number]
== END ==
LOC: CT 00:42
PROVIDERS: ATTEND Surgery
DX: C16.9 Malignant neoplasm of stomach, unspecified (principal); R91.1 Solitary pulmonary nodule; K57.30 Diverticulosis of large intestine without perforation or abscess without bleeding; R59.0 Localized enlarged lymph nodes; K40.90 Unilateral inguinal hernia, without obstruction or gangrene, not specified as recurrent; Z90.49 Acquired absence of other specified parts of digestive tract
CPT/HCPCS: 74177; Q9967